=== PATIENT | female | born 1980 | race Caucasian/White ===

== ENCOUNTER 2017-06-23 16:52 | Emergency (ER) | payer BC, MEDICAID, OTHER ==
[~2017-06-23] VITALS: Wt 71.0 kg
[~2017-06-23 16:52] MED LIST: THERAFLU; TYLENOL
[2017-06-23 18:59] LABS: URINE BLOOD (Dip) POC Negative (NEGATIVE)
[2017-06-23] MEDS ORDERED: MECL12.574 PO (19:09)
--- NOTE | 2017-06-23 19:16 | ERD ---
ER Documentation Chief Complaint Chief Complaint HEADACHE X3 WEEKS, DIZZINESS, NAUSEA, NO BLURRY VISION HPI 37-year-old female patient with no significant past history presents to the ED complaining of a headache that started gradually 3 weeks ago associated with positional dizziness and nausea. Patient her dizziness comes with positional movements. States that it feels like her head is spinning. States that it is worse when she gets up out of her seat. States that nothing makes it better. Denies any chest pain, shortness breath, fever, chills, nausea, vomiting, blurred vision, diplopia, eye pain, diarrhea, seizures. Denies any head or neck injuries. ROS All systems reviewed and are negative except as per history of present illness. Medications Home Meds Active Scripts Meclizine Hcl* (Antivert*) 12.5 Mg Tab, 12.5 MG PO Q6H Y for DIZZINESS, #20 TAB Prov:HARDY GRAHAM PA-C 06/23/17 Reported Medications [Theraflu] No Conflict Check 08/30/09 [Tylenol ] No Conflict Check 08/30/09 Allergies Allergies: Coded Allergies: No Known Drug Allergies (Verified Allergy, Mild, 08/30/09) PMhx/Soc Medical and Surgical Hx: pt denies Medical Hx, pt denies Surgical Hx History of Surgery: No Anesthesia Reaction: No Hx Neurological Disorder: No Hx Respiratory Disorders: No Hx Cardiac Disorders: No Hx Psychiatric Problems: No Hx Miscellaneous Medical Probl: No Hx Alcohol Use: No Hx Substance Use: No Hx Tobacco Use: No Smoking Status: Current some day smoker Physical Exam Vitals Vital Signs Date Time Temp Pulse Resp B/P Pulse Ox O2 Delivery O2 Flow Rate FiO2 06/23/17 19:39 81 18 111/55 100 Room Air 06/23/17 16:55 98.6 98 18 142/83 100 Physical Exam Const: [id number], well-nourished. In no acute distress. Head: Atraumatic, normocephalic Eyes: Normal Conjunctiva without injection. No purulent discharge. PERRLA. EOMI ENT: Normal external ear. Ear canal without erythema. Tympanic membrane pearly earl without effusion or bulging. Nasal canal clear with normal turbinates. Moist oropharynx without tonsillar exudates. Non-erythematous pharynx. Uvula midline. No drooling. No trismus. Neck: No cervical midline tenderness. Full range of motion. No meningismus. No cervical lymphadenopathy. No JVD. Resp: Clear to auscultation bilaterally. No wheezing, rhonchi, rales, or crackles. No accessory muscle use. No retractions. Cardio: Regular rate and rhythm. No murmurs, rubs or gallops. Abd: Soft, non tender, non distended. Normal bowel sounds. No palpable masses. No rebound tenderness. No guarding. Negative McBurney's Point. Negative Mendez's Sign. Skin: Normal skin turgor. No petechiae or rashes Back: No midline tenderness. No CVA tenderness. Ext: No cyanosis, or edema. Distal pulses intact bilaterally. Neur: Awake and alert. Normal gait. Normal coordination. Cranial Nerves II- VII intact. Normal finger to nose. Muscle strength 5/5. Sensation intact. Psych: Normal Mood and Affect Results 24 hrs Laboratory Tests Test 06/23/17 18:59 Bedside Urine pH (LAB) 7.0 Bedside Urine Protein (LAB) Negative Bedside Urine Glucose (UA) Negative Bedside Urine Ketones (LAB) Negative Bedside Urine Blood Negative Bedside Urine Nitrite (LAB) Negative Bedside Urine Leukocyte Esterase (L Negative Procedures/MDM 37-year-old female patient with no significant past medical history presents to the ED complaining of dizziness, headache, vomiting. She is afebrile and nontoxic-appearing. Patient has normal vital signs. Patient likely has positional vertigo. Low suspicion for intracranial bleed, subarachnoid hemorrhage, meningitis, TIA, stroke, seizures, anemia, hypoglycemia, subdural hematoma, epidural hematoma or other emergent conditions. Discharge medications: Meclizine Follow up with primary care physician in 1-2 days for a referral to see an ears nose throat specialist. Instructed patient to return to the ED sooner for any worsening symptoms. Patient's questions were answered. Patient understood and agreed with discharge plan. Patient discharged stable. Departure Diagnosis: Primary Impression: Postural dizziness Condition: Stable Patient Instructions: Dizziness (Vertigo) and Balance Problems: Ensuring Your Safety, Benign Positional Vertigo Referrals: COMMUNITY CLINICS YOU HAVE RECEIVED A MEDICAL SCREENING EXAM AND THE RESULTS INDICATE THAT YOU DO NOT HAVE A CONDITION THAT REQUIRES URGENT TREATMENT IN THE EMERGENCY DEPARTMENT. FURTHER EVALUATION AND TREATMENT OF YOUR CONDITION CAN WAIT UNTIL YOU ARE SEEN IN YOUR DOCTORS OFFICE WITHIN THE NEXT 1-2 DAYS. IT IS YOUR RESPONSIBILITY [facility] IF YOU HAVE A PRIMARY DOCTOR --you should call your primary doctor and schedule an appointment IF YOU DO NOT HAVE A PRIMARY DOCTOR YOU CAN CALL OUR PHYSICIAN REFERRAL HOTLINE AT IF YOU CAN NOT AFFORD TO SEE A PHYSICIAN YOU CAN CHOSE FROM THE FOLLOWING [facility] [address] [facility] [address] [facility] [address] [facility] [address] [facility] [address] [facility]. [facility] [address] [facility] YOU HAVE RECEIVED A MEDICAL SCREENING EXAM AND THE RESULTS INDICATE THAT YOU DO NOT HAVE A CONDITION THAT REQUIRES URGENT TREATMENT IN THE EMERGENCY DEPARTMENT. FURTHER EVALUATION AND TREATMENT OF YOUR CONDITION CAN WAIT UNTIL YOU ARE SEEN IN YOUR DOCTORS OFFICE WITHIN THE NEXT 1-2 DAYS. IT IS YOUR RESPONSIBILITY TO MAKE AN APPOINTMENT FOR [facility]UP CARE. IF YOU HAVE A PRIMARY DOCTOR --you should call your primary doctor and schedule and appointment IF YOU DO NOT HAVE A PRIMARY DOCTOR YOU CAN CALL OUR PHYSICIAN REFERRAL HOTLINE AT . IF YOU CAN NOT AFFORD TO SEE A PHYSICIAN YOU CAN CHOSE FROM THE FOLLOWING [facility]: [facility] [address] [place] [address] [facility] [address] [place] [address] [facility] [address] [place] [address] [facility] Additional Instructions: Call your primary care doctor TOMORROW for an appointment during the next 1-2 days.See the doctor sooner or return here if your condition worsens before your appointment time. HARDY GRAHAM PA-C Jun 23, 2017 19:16
[2017-06-23 19:39] VITALS: BP 111/55; PULSE 81; RESP 18
== END 2017-06-23 19:41 | disposition home or self-care (01) ==
LOC: FTE 16:52
DX: R42 Dizziness and giddiness (principal); F17.210 Nicotine dependence, cigarettes, uncomplicated
CPT/HCPCS: 81003; Z7502; 99283

== ENCOUNTER 2018-02-21 19:52 | Emergency (ER) | END 2018-02-21 23:51 | disposition home or self-care (01) ==

== ENCOUNTER 2018-03-05 00:15 | Inpatient (IN) | END 2018-03-07 14:25 | disposition home or self-care (01) | DRG 378 ==